=== PATIENT | female | born 1955 | race Caucasian/White ===

== ENCOUNTER → 2017-02-27 | Outpatient (CLI) | payer OTHER ==
[~2017-02-27] MED LIST: ACCUNEB SO1.25 MG/1 INH; ASA5UEC PO; ASPIR 8181 MG PO; ASPIRIN EC325 M1 PO; ASPIRIN EC81 M1 PO; ATORVASTATIN CA40 MG PO; B12INJ IM; BENADRYL25 MG PO; CARDIZEM CD120 MG PO; CARDIZEM CD180 MG PO; CARDIZEM120 MG PO; CENTRUM SILVER1 EAC4 PO; CIPRO500 MG PO; CLEOCIN HCL300 MG PO; CLONIDINE0.1 PO; CYMBALTA30 MG PO; DIGESTIVE PROB1 EACH PO; DRAMAMINE50 MG PO; FIBER350 GM PO; FIBER625 MG PO; GEMFIBROZIL 60600 M1 PO; GEMFIBROZIL 60600 MG PO; HYDROCODON-ACE1 EAC8 PO; HYDROCODONE-APA1 TA1 PO; IBUPROFEN 400400 M1 PO; IMDUR 30 MG TAB30 M1 PO; KEPPRA 500 MG500 M1 PO; KEPPRA XR750 MG PO; KEPPRA1000 MG PO; LEVEMIR SUBQ; MAGNESIUM400 MG PO; MAGOX 400400 MG PO; MELATONIN3 MG PO; MELATONIN5 M1 PO; MELOXICAM7.5 MG PO; METFORMIN HCL500 MG PO; MOBIC15 MG PO; MOTION SICKNESS25 MG PO; NEURONTIN 300300 M1 PO; NEXIUM40 MG PO; NITROSTAT0.4 MG SL; NORCO 10-325 T1 EACH PO; NORCO 5-325 TA1 EACH PO; NOVOLOG100 UNIT/1 SUBQ; NYSTATIN 100,0015 G1; OMEPRAZOLE20 M2 PO; PERCOCET 5-3251 EACH PO; PHENERGAN50 MG RECTAL; PLAVIX 75 MG TA75 M1 PO; PREDNISONE 10 M10 MG PO; PRILOSEC 20 MG20 MG PO; PRINIVIL20 MG PO; PROBIOTIC1 EAC1 PO; PROMETHAZINE D480 ML; PROVENTIL HFA6.7 G1 IN; ROBAXIN 750 MG750 M1 PO; SINGULAIR 10 MG10 M1 PO; SINGULAIR 10 MG10 MG PO; SPIRIVA INH; TESSALON PERLE100 MG PO; THERA M PLUS T1 EAC2 PO; ULTRACET TABLET1 TAB PO; UNICOMPLEX M TA1 TA1 PO; VIMPAT150 MG PO; ZANTAC 150MG T150 M1 PO; ZESTORETIC 20-1 EAC3 PO; ZOCOR40 MG PO; ZOFRAN 4 MG ORAL4 MG PO; ZOFRAN ODT4 MG PO; ZPAK PO
== END ==
LOC: RAD 11:26
DX: S02.2XXA Fracture of nasal bones, initial encounter for closed fracture (principal); J34.2 Deviated nasal septum; J44.9 Chronic obstructive pulmonary disease, unspecified; X58.XXXA Exposure to other specified factors, initial encounter; Y93.89 Activity, other specified; Y92.89 Other specified places as the place of occurrence of the external cause; Y99.8 Other external cause status

== ENCOUNTER → 2017-03-28 | Outpatient (CLI) | payer OTHER ==
[2017-03-28 14:50] LABS: CREATININE 0.8 mg/dL (0.6-1.0)
== END ==
LOC: RAD 14:18
PROVIDERS: Internal Medicine Pulmonary Disease
DX: I70.0 Atherosclerosis of aorta (principal); M25.78 Osteophyte, vertebrae